=== PATIENT | female | born 2000 | race Caucasian/White ===

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

== ENCOUNTER 2025-09-02 11:51 | Emergency (ER) | payer OTHER | END 2025-09-02 12:44 | disposition home or self-care (01) | LOC: BURERS 11:51 | DX: J45.909 Unspecified asthma, uncomplicated (principal); Z79.899 Other long term (current) drug therapy | CPT/HCPCS: 96372; J2919 ==